=== PATIENT | female | born 1965 | race Caucasian/White ===

== ENCOUNTER 2017-08-13 17:03 | Emergency (ER) | payer BC, OTHER ==
[~2017-08-13] VITALS: Ht 154.9 cm; Wt 72.7 kg
[2017-08-13 17:06] VITALS: TEMP 36.5; Ht 154.9 cm; Wt 72.7 kg
[2017-08-13] MEDS ORDERED: ONDANSETRON INJ 2 MG/ML 2 ML VIAL IV STA (17:14)
[2017-08-13] MEDS ORDERED: FENTANYL CITRATE INJ 50 MCG/1 ML 2 ML VIAL IV ONE ×2 (17:15→18:00)
[2017-08-13] MEDS ORDERED: MULT-506 PO (17:26)
[2017-08-13] MEDS ORDERED: PANT40TA PO (17:26)
[2017-08-13] MEDS ORDERED: MELO7.5T5 PO (17:26)
[2017-08-13 17:37] VITALS: O2SAT 95
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
[2017-08-13] MEDS ORDERED: OPTIRAY 320 IV PRN (18:15)
[2017-08-13 18:19] LABS: BASO % 0.4 %; BASO ABS # 0.04 K/uL (0-0.2); EOS % 2.5 %; EOS ABS # 0.24 K/uL (0-0.5); HEMATOCRIT 37.8 % (37-47); HEMOGLOBIN 12.4 g/dL (12.0-16.0); IG# 0.11 K/uL (0.00-0.02); LYMPH % 36.1 %; LYMPH ABS # 3.47 K/uL (1.2-3.4); MEAN CELL VOLUME 91.5 fL (80-100); MEAN CORPUSCULAR HGB CONC 32.8 g/dl (32-36); MEAN PLATELET VOLUME 9.5 fL (7.4-10.4); MONO % 5.7 %; MONO ABS # 0.55 K/uL (0.11-0.59); NEUT % 54.2 %; NEUT ABS # 5.21 K/uL (1.4-6.5); PLATELET COUNT 429 K/uL (130-400); RED CELL DISTRIBUTION WIDTH CV 13.7 % (11.5-14.5); RED CELL DISTRIBUTION WIDTH SD 45.1 fL (36.4-46.3); WHITE BLOOD COUNT 9.62 K/uL (4.8-10.8)
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
[2017-08-13 18:40] LABS: ALBUMIN 4.2 gm/dl (3.4-5.0); CALCIUM 8.9 mg/dl (8.5-10.1); CREATININE 0.94 mg/dl (0.60-1.20); POTASSIUM 3.8 mmol/L (3.5-5.1); TOTAL PROTEIN 8.2 gm/dl (6.4-8.2)
[2017-08-13] MEDS ORDERED: MoRPHine SULFATE 4 MG/ML 1 ML CARP\\VIAL IV ONE (18:45)
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
[2017-08-13] MEDS ORDERED: SODIUM CHLORIDE 0.9% 1000ML 1,000 ML IV ONE (19:15)
[2017-08-13 20:25] VITALS: BP 123/81; PULSE 101; O2SAT 98
== END 2017-08-13 20:26 | disposition short-term general hospital (02) ==
LOC: EDBD 17:04 → C.EDB 17:04 → C.EDA 20:26
DX: S22.20XA Unspecified fracture of sternum, initial encounter for closed fracture (principal); S27.329A Contusion of lung, unspecified, initial encounter; V49.50XA Passenger injured in collision with unspecified motor vehicles in traffic accident, initial encounter; R40.2412 Glasgow coma scale score 13-15, at arrival to emergency department; R00.0 Tachycardia, unspecified; R09.02 Hypoxemia; Z79.899 Other long term (current) drug therapy